=== PATIENT | female | born 2000 | race African-American/Black ===

== ENCOUNTER 2022-06-25 17:51 | Emergency (ER) | payer BC, SELFPAY ==
[2022-06-25 17:58] VITALS: BP 157/89; PULSE 106; RESP 16; TEMP 37.1; O2SAT 100
--- NOTE | 2022-06-25 19:49 | DI.RAD_ITS ---
Exam(s) XR PORTABLE CHEST AP EXAM: XR PORTABLE CHEST AP CLINICAL HISTORY: fever. TECHNIQUE: 2D digital imaging was performed. COMPARISON: No exams were available for comparison FINDINGS: Single AP portable view. Heart size is upper normal. The mediastinum is not widened. Right lung is clear. However, there is platelike atelectasis in the left lung base. No pleural effu sions. IMPRESSION: There is abnormal platelike atelectasis in left lung base. No pleural effusions. DATA REPOSITORY: RADIATION DOSE DELIVERED: All CT scans at this facility use at least one of these dose optimization techniques: automated exposure control; mA and/or kV adjustment per patient size (includes targeted e xams where dose is matched to clinical indication); or iterative reconstruction.
--- NOTE | 2022-06-25 20:00 | DI.VRAD_ITS ---
PROCEDURE INFORMATION: Exam: XR Chest Exam date and time: 06/25/2022 7:30 PM Age: 21 years old Clinical indication: Fever TECHNIQUE: Imaging protocol: Radiologic exam of the chest. Views: 1 view. COMPARISON: No relevant prior studies available. FINDINGS: Lungs: Linear opacification of the left lung base likely representing atelectasis or minor scar. No acute infiltrates. Pleural spaces: No pleural effusion. Heart/Mediastinum: Normal heart size. No features of adenopathy suggested Bones/joints: Unremarkable skeletal structures. IMPRESSION: 1. Left lung base linear opacification likely atelectasis or scar. 2. No acute infiltrates or edema. 3. No pleural effusions. 4. No features of hilar or mediastinal adenopathy. Dictated and Authenticated by: Aden Mancia MD. Ordering:CHING Brooks MD
[2022-06-25 21:10] LABS: Source Nasal/Nares
[2022-06-25 21:33] LABS: Abs Immature Grans 0.02 10^3/uL (0.0-0.06); Absolute Basophil Count 0.02 10^3/uL (0.0-0.2); Absolute Eosinophil Count 0.14 10^3/uL (0.0-0.7); Absolute Lymphocyte Count 1.71 10^3/uL (1.2-3.4); Absolute Monocyte Count 1.24 10^3/uL (0.1-0.8); Absolute Neutrophil Count 2.77 10^3/uL (1.2-6.7); Basophils % 0.3; Eosinophils % 2.4; HCT 36.1 % (36.0-46.0); HGB 11.9 g/dL (11.2-15.7); Immature Grans % 0.3; MCH 26.3 pg (27.0-33.0); MCV 80 fL (80-95); MPV 10.7 fL (8.0-11.0); Platelet Count 247 10^3/uL (130-400); RBC 4.52 10^6/uL (3.93-5.22); RDW-SD 40.2 fL
[2022-06-25 21:54] LABS: ALT 28 U/L (14-59); AST 18 U/L (15-37); Albumin 3.7 g/dL (3.4-5.0); Alkaline Phosphatase 69 U/L (46-116); Anion Gap 10.3 mmol/L (3-11); BUN 6 mg/dL (7-18); Bilirubin, Total 0.1 mg/dL (0.2-1.0); CO2 23.7 mmol/L (21.0-32.0); CREATININE 0.8 mg/dL (0.55-1.02); Calcium 8.9 mg/dL (8.5-10.1); Chloride 105 mmol/L (98-107); Glucose 107 mg/dL (74-106); Potassium 3.6 mmol/L (3.5-5.1); Sodium 139 mmol/L (136-145); Total Protein 8.2 g/dL (6.4-8.2)
[2022-06-25 21:55] LABS: Bilirubin Negative (Negative); Blood Negative (Negative); Clarity Clear (Clear); Glucose Negative (Negative); Ketones Negative (Negative); Leukocyte Esterase Negative (Negative); Nitrite Negative (Negative); Specific Gravity 1.015 (1.005-1.025); Urobilinogen 0.2 EU/dL (Up TO 0.2); pH 7.5 (5-8)
--- NOTE | 2022-06-25 21:56 | ED.GENADUL_ITS ---
Discharge Plan Disposition Patient Disposition: HOME Condition: Stable Discharge Details Clinical Impression: Fever, Viral illness Primary Care Provider: None,None ED Provider: Cecilia Brooks Home Meds and New Rx's Prescriptions: New Paxlovid (EUA) 300 mg (150 mg x 2)-100 mg tablets,dose pack See Rx Instructions .ROUTE .COMPLEX Qty: 30 0RF Rx Instructions: take TWO 150 mg tablets of nirmatrelvir with ONE 100 mg tablet of ritonavir twice daily for 5 days Continued Excedrin Migraine 250-250-65 mg Tablet 1 tab PO PRN PRN acetaminophen 500 mg Tablet 500 mg PO PRN PRN Discharge Instructions Instructions: Fever in Adults (ED), Viral Syndrome (ED) Additional Instructions: Your labs do not show evidence of new abnormality Your COVID test is pending at this time I will send a prescription to your listed pharmacy if you test positive for COVID you may start taking this medication, its compact Flovent and it will likely decrease the severity and course of your symptoms Please return earlier should you have new or worsening complaints You should isolate for at least 5 days from the onset of your symptoms and until you have been fever free for over 24 hours and symptoms free for greater then 24 hours He should continue to wear a mask for 5 days after your symptoms and fever resolve Stand Alone Forms: Work Release Discharge Data Discharge Date/Time-TO BE ENTERED AT DEPARTURE: 06/25/22 22:04 Medical Decision Making Patient is COVID-positive, given her BMI, she is a candidate for Paxlovid this was initiated Given isolation precautions and work note Return precautions discussed and patient expressed understanding Medical Records Medical records reviewed: Yes I reviewed the patient's medical records. Lab Data Lab results reviewed: Yes I reviewed the patient's lab results. HPI General Date/Time Provider Initiated Documentation: 06/25/22 18:36 . HPI Narrative: This 21-year-old female presents with fever, 103, sore throat, runny nose, and body aches. She is COVID vaccinated. She denies chance of . She denies any shortness of breath. She denies any nausea or vomiting. She denies any pain in her chest. Related Data Home Medications Medication Instructions Recorded Confirmed acetaminophen 500 mg tablet 500 mg PO PRN PRN 06/25/22 06/25/22 [id number] 250 1 tab PO PRN PRN 06/25/22 06/25/22 mg-250 mg-65 mg tablet (Excedrin Migraine) nirmatrelvir 300 mg (150 mg See Rx Instructions PO .COMPLEX 06/25/22 x2)-ritonavir 100 mg tablet,dose #30 dose pk pack(EUA) (Paxlovid) Previous Rx's Medication Instructions Recorded nirmatrelvir 300 mg (150 mg See Rx Instructions PO .COMPLEX 06/25/22 x2)-ritonavir 100 mg tablet,dose #30 dose pk pack(EUA) (Paxlovid) Allergies Allergy/AdvReac Type Severity Reaction Status Date / Time cat dander Allergy Unverified 06/25/22 18:05 dog dander Allergy Unverified 06/25/22 18:05 General Stated Complaint: Nk/Back Pain JOSEPH: 3 Review of Systems All systems reviewed & are unremarkable except as noted in HPI and below PFSH All Active Problems (Updated 06/25/22 @ 21:58 by IRINEO Garnica) Fever (Acute) Viral illness (Acute) Allergic rhinitis (Acute 09/28/12) BMI (body mass index), pediatric, 85% to less than 95% for age (Acute 11/10/12) BMI (body mass index), pediatric, 95-99% for age (Acute 12/22/16) Body mass index (bmi) pediatric, greater than or equal to 95th percentile for age (Acute 11/21/15) Constipation (Acute 11/10/12) Mild intermittent asthma, uncomplicated (Acute 11/21/15) Routine child health exam (Acute 11/10/12) Unspecified asthma (Acute 09/28/12) MILD PERSIST Medical History (Updated 06/25/22 @ 21:58 by IRINEO Garnica) Asthma Surgical History Tonsillectomy and adenoidectomy Family History Mother Healthy adult on routine physical examination Mental disorder DEPRESSION/ANXIETY Father Healthy adult on routine physical examination Other Substance abuse GRANDPARENT Diabetes GRANDPARENT Essential hypertension PGM Heart disease PGF, PGM Mental disorder DEPRESSION-GRANDPARENT Asthma GRANPARENT Social History Smoking/Tobacco Use Status: Never Smoking risk assessment performed?: Yes Alcohol Intake: current Alcohol Intake frequency: holidays/special occasions only Drug use: Current Sobriety Substance use type: does not use Do you feel safe at home: Yes Do you feel safe in your relationship?: Yes Exam Const General: cooperative, comfortable and no acute distress HENMT Head: normal to inspection Mouth: oral mucosae normal Other: uvula midline, no exudate, maintaining secretions Eyes Pupils: PERRL Neck Other: No meningismus Resp Effort & Inspection: normal respiratory effort Auscultation: clear to auscultation bilaterally Cardio Rate: regular rate Rhythm: regular rhythm Skin General skin exam: no rashes or lesions noted Neuro General: patient alert and patient oriented x3 Course Vital Signs Vital signs: Vital Signs Temperature 37.1 C 06/25/22 17:58 Pulse 106 H 06/25/22 17:58 Respiratory Rate 16 06/25/22 17:58 Blood Pressure 157/89 H 06/25/22 17:58 Pulse Oximetry 100 06/25/22 17:58 Temperature 37.1 C 06/25/22 17:58 Temperature Source Skin 06/25/22 17:58 Pulse 106 H 06/25/22 17:58 Respiratory Rate 16 06/25/22 17:58 Respiratory Effort 06/25/22 19:11 Blood Pressure 157/89 H 06/25/22 17:58 Blood Pressure Position Sitting 06/25/22 17:58 Pulse Oximetry 100 06/25/22 17:58 Oxygen Delivery Method Room Air 06/25/22 17:58 Oxygen Flow Rate 0 06/25/22 17:58 Pain Level 7 06/25/22 17:58 Lab/Test Results Lab/Test Results: Laboratory Tests Range/Units 06/25/22 06/25/22 06/25/22 20:00 21:25 21:25 WBC (4.4-10.8) 10^3/uL 5.90 RBC (3.93-5.22) 10^6/uL 4.52 Hgb (11.2-15.7) g/dL 11.9 Hct (36.0-46.0) % 36.1 MCV (80-95) fL 80 MCH (27.0-33.0) pg 26.3 L MCHC (32.0-36.0) % 33.0 RDW (11.7-14.6) % 14.0 Plt Count (130-400) 10^3/uL 247 MPV (8.0-11.0) fL 10.7 Immature Gran % 0.3 Neutrophils % 47.0 Lymphocytes % 29.0 Monocytes % 21.0 Eosinophils % 2.4 Basophils % 0.3 Nucleated RBC % (0.0-0.3) % 0.0 Absolute Neutrophils (1.2-6.7) 10^3/uL 2.77 Absolute Lymphocytes (1.2-3.4) 10^3/uL 1.71 Absolute Monocytes (0.1-0.8) 10^3/uL 1.24 H Absolute Eosinophils (0.0-0.7) 10^3/uL 0.14 Absolute Basophils (0.0-0.2) 10^3/uL 0.02 Sodium (136-145) mmol/L 139 Potassium (3.5-5.1) mmol/L 3.6 Chloride (98-107) mmol/L 105 Carbon Dioxide (21.0-32.0) mmol/L 23.7 Anion Gap (3-11) mmol/L 10.3 BUN (7-18) mg/dL 6 L Creatinine (0.55-1.02) mg/dL 0.8 Estimated GFR/1.73 m2 (mL/min/1.73m2) >= 60.00 Glucose (74-106) mg/dL 107 H Calcium (8.5-10.1) mg/dL 8.9 Total Bilirubin (0.2-1.0) mg/dL 0.1 L AST (15-37) U/L 18 ALT (14-59) U/L 28 Alkaline Phosphatase (46-116) U/L 69 Total Protein (6.4-8.2) g/dL 8.2 Albumin (3.4-5.0) g/dL 3.7 COVID-19 Source Nasal/Nares POC- Test(urine) Negative
[2022-06-25 22:05] VITALS: BP 150/93; PULSE 94; RESP 16; TEMP 37.2; O2SAT 98
[2022-06-25 22:08] VITALS: BP 99/63; PULSE 90; TEMP 36.8; O2SAT 97
[2022-06-25 22:17] LABS: COVID-19 PCR POSITIVE (Negative)
== END 2022-06-25 22:04 | disposition home or self-care (01) ==
PROVIDERS: Emergency Provider Physician Assistant
DX: U07.1 COVID-19 (principal); Z32.02 Encounter for pregnancy test, result negative
CPT/HCPCS: 80053; 81025; 87635; 99283; 71045; 81003; 85025

== ENCOUNTER 2023-10-11 12:28 | Outpatient (REF) | payer BC, SELFPAY | END 2023-10-11 12:29 | disposition home or self-care (01) | LOC: LBN 12:28 | PROVIDERS: Visit Provider Advanced Practice Midwife | DX: N89.8 Other specified noninflammatory disorders of vagina (principal) | CPT/HCPCS: 87480; 87510; 87660 ==

== ENCOUNTER 2024-10-16 09:17 | Outpatient (REF) | payer BC, SELFPAY ==
--- NOTE | 2024-10-16 09:00 | PAPFT_PTH ---
PATIENT: Janet Chavez LOC: [facility] U#:[id number] AGE/SX: 24/F ROOM: RE10/16/[address]: Irish Reilly NP : 2000 BED: DIS: 10/16/2024 SPEC #: [id number] RECD: 10/16/24 13:17 STATUS: TIERA REQ #: [id number] JOVANY: 10/16/24 09:[address]: Irish Reilly NP DEPT: [facility] Cytology RECD BY: Cecilia Zepeda ENTERED: 10/16/24 13:17 SP TYPE: PAPFT OTHR DR: Unknown,Unknown Tissues: 1 - CX/ENDOCX FOR PAP SMEARS Procedures: PAP THIN PREP/[facility] Screening Comments: [id number]
== END 2024-10-16 09:18 | disposition home or self-care (01) ==
LOC: LBN 09:17
PROVIDERS: Visit Provider Nurse Practitioner Women's Health
DX: Z01.419 Encounter for gynecological examination (general) (routine) without abnormal findings (principal); Z97.5 Presence of (intrauterine) contraceptive device; Z12.4 Encounter for screening for malignant neoplasm of cervix
CPT/HCPCS: 88142